=== PATIENT | male | born 1990 | race Caucasian/White ===

== ENCOUNTER 2018-07-27 19:09 | Inpatient (IN) ==
[2018-07-27] MEDS ORDERED: Isovue-370 500 ML BOTTLE IVP ONE (20:02)
[2018-07-27] MEDS ORDERED: 0.9 % Sodium Chloride 1,000 ML IVC ONE ×2 (20:02→21:29)
[2018-07-27] MEDS ORDERED: Ondansetron 4 MG/2 ML VIAL IVP ONE (20:02)
[2018-07-27] MEDS ORDERED: *HR* FentaNYL (PF) 100 MCG/2 ML VIAL IVP ONE (20:02)
[2018-07-27 20:42] LABS: Bilirubin,Urine Negative (Negative); Blood,Urine Negative (Negative); Clarity,Urine Cloudy (Clear); Color,Urine Yellow (Yellow); Glucose,Urine (UA) Normal (Normal); Ketones,Urine Trace mg/dL (Negative); Leukocyte Esterase,Urine Negative (Negative); Nitrite,Urine Negative (Negative); Protein,Urine 100 mg/dL (Neg-Trace); Specific Gravity,Urine > 1.030 (1.010-1.025); Urobilinogen,Urine Normal (Normal)
[2018-07-27 20:45] LABS: Bacteria,Urine None Seen per hpf (None-Few); Squamous Epithelial Cell,Urine Many per lpf (None-Few)
[2018-07-27 20:48] LABS: Hyaline Casts,Urine Few per lpf (None-Few); RBC,Urine 0-3 per hpf (0-3)
--- NOTE | 2018-07-27 20:49 | Emergency Department Note ---
Disposition Clinical Impression: Alcohol abuse Acute pancreatitis Qualifiers: Pancreatitis type: alcohol induced Acute pancreatitis complication: no infection or necrosis Qualified Code(s): K85.20 - Alcohol induced acute pancreatitis without necrosis or infection Disposition: Admitted As Inpatient Condition: Fair Referrals: NONE,PCP [Primary Care Provider] - Forms: ED Satisfaction Letter, Work/School Release Time of Disposition: 23:41 Abdominal Pain HPI - General Chief Complaint: ED Abdominal Pain Stated Complaint: ABD Pain due to ETOH Abuse / Depression Time Seen by Provider: 07/27/18 19:33 Source: patient Mode of arrival: ambulatory Limitations: no limitations Nursing Notes Reviewed: Yes Vital Signs Reviewed: Yes - History of Present Illness HPI Narrative: 27-year-old male history of alcoholism presents to the emergency department for generalized abdominal pain. He said that the pain has been ongoing for a couple days and slowly getting worse. He does have history of chronic alcoholism where he drinks approximately a pint 2 L of whiskey daily. He said he is trying to cut back and does want to stop. He does feel that he is been very depressed feels he is hurting himself by drinking but cannot stop. He has not any suicidal or homicidal ideations. He is describing the pain as a dull throbbing ache across the whole abdomen nonradiating nothing seems to make it better or worse. He has no diarrhea or constipation. There has been no fevers. He has never had any abdominal surgeries. Otherwise patient has no other complaints at this time. Pain Scale: 9 - Related Data Previous Rx's Medication Instructions Recorded Promethazine/Dextromethorphan 5 ml PO Q4-6H PRN #120 syrup 03/05/18 [Promethazine-Dm Syrup] Allergies Allergy/AdvReac Type Severity Reaction Status Date / Time No Known Allergies Allergy Verified 03/05/18 15:37 All systems ED: reviewed and negative except as stated. Review of Systems: As Per HPI Abdominal Pain PMH - Past Medical History Medical history: Reports: other Male Surgical History: Reports: no surgical history - Social History Smoking status: Never smoker Alcohol use: Reports: heavy Drug use: Reports: none Physical Exam - General Limitations: no limitations General appearance: alert, in no apparent distress - Head Head exam: atraumatic, normocephalic, normal inspection - Eye Eye exam: Present: normal appearance, PERRL, EOMI - ENT ENT exam: normal exam, normal oropharynx, mucous membranes moist - Neck Neck exam: Present: normal inspection, full ROM, trachea midline - Chest Chest inspection: Present: normal inspection, symmetric chest wall rise - Respiratory Respiratory exam: Present: normal lung sounds bilaterally - Cardiovascular Cardiovascular exam: Present: regular rate, normal rhythm, normal heart sounds - Abdominal Exam Abdominal exam: Present: soft, tenderness (Mild diffuse tenderness on the abdomen while palpating noticeable masses.), normal bowel sounds. Absent: distention, guarding, rebound, rigidity, heel tap sign, Barron's sign, Rovsing's sign, tenderness at McBurney's Point, ascites, mass, pulsatile mass, hernia - Extremities Exam Extremities exam: Present: normal inspection, full ROM. Absent: tenderness, pedal edema - Back Exam Back exam: Present: normal inspection, full ROM. 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 No workup further for that as needed. We EKG, basic labs including CBC, BMP, lipase as well as a CT of the abdomen and pelvis with contrast to rule out signs of pancreatitis or other etiologies. We will consider possible psychiatric eval and also give resources for alcohol detox. Disposition pending results Vital Signs Temperature 98.2 F 07/27/18 19:16 Pulse Rate 132 07/27/18 19:16 Respiratory Rate 20 07/27/18 19:16 Blood Pressure 166/111 07/27/18 19:16 O2 Sat by Pulse Oximetry 99 07/27/18 19:16 Temperature 98.2 F 07/27/18 19:16 Pulse Rate 101 07/27/18 22:03 Respiratory Rate 16 07/27/18 22:03 Blood Pressure 153/89 07/27/18 22:03 O2 Sat by Pulse Oximetry 95 07/27/18 22:03 Oxygen Delivery Oxygen Delivery Room Air Abdominal Pain - MDM Narrative Medical decision making narrative: Patient with history of alcoholism said he did drink today. He is trying to quit and does want to go through detox. Says that he feels as though the alcohol is killing him and he just keeps on wanting to do a although he does not have any specific suicidal or homicidal ideations but does want to see psychiatry to help him deal through this difficult time. Patient's labs did s how an elevated lipase as well as CT showing acute pancreatitis. Did give patient 2 L IV fluids as well as multiple pain medications fentanyl did not work, morphine did not work, so we gave Dilaudid as his last dose. Patient is stable. There is no necrosis or fluid around the pancreas. Patient will be kept nothing by mouth. Patient will be admitted to the hospitalist service for pain control as well as further evaluation. Also need to watch for alcohol withdrawal he is not had any withdrawal symptoms here. Was positive for alcohol while here in the emergency department. I spoke with Dr. Nunez who agreed to admit the patient to their service. Patient is admitted in stable condition Abdomen/Pelvis CT 07/27/18 19:59 IMPRESSION: 1. Findings favoring acute pancreatitis causing secondary duodenitis; correlate with lipase. D/ / Lincoln Johnson MD / Lincoln Johnson MD Interpreting Provider: Lincoln Johnson MD - Medical Records Medical records reviewed: Yes I reviewed the patient's medical records. - Lab Data Lab results reviewed: Yes I reviewed the patient's lab results. Result diagrams: 07/27/18 20:46 07/27/18 20:46 Lab Results 07/27/18 07/27/18 07/27/18 Range/Units 20:30 20:30 20:46 WBC 6.5 (4.3-11.1) K/mcL RBC 5.59 H (4.19-5.50) M/mcL Hgb 17.1 H (12.9-16.9) g/dL Hct 48.9 (37.5-50.1) % MCV 87.5 (83.0-100.0) fL MCH 30.6 (28.0-33.3) pg MCHC 35.0 (31.6-35.5) g/dL RDW 14.1 (11.5-14.5) % Plt Count 443 H (140-400) K/mcL MPV 9.2 L (9.4-12.4) fL Immature Gran % 0.3 (0-4) % Seg Neutrophils % 65.2 % Lymphocytes % 25.2 % Monocytes % 8.2 % Eosinophils % 0.2 % Basophils % 0.9 % Neutrophils # 4.2 (1.6-8.9) K/mcL Lymphocytes # 1.6 (0.6-4.6) K/mcL Monocytes # 0.5 (0.0-1.3) K/mcL Eosinophils # 0.0 (0.0-0.6) K/mcL Basophils # 0.1 (0.0-0.2) K/mcL PT (9.4-12.1) Seconds INR APTT (26.0-36.0) Seconds Sodium (136-145) mEq/L Potassium (3.5-5.1) mEq/L Chloride (98-107) mEq/L Carbon Dioxide (23-29) mEq/L BUN (6-20) mg/dL Creatinine (0.70-1.30) mg/dL Est GFR ( Amer) (> 60) Est GFR (Non-Af Amer) (> 60) BUN/Creatinine Ratio (6-26) Glucose (70-105) mg/dL Calculated Osmolality (280-300) Lactic Acid (0.5-2.2) mmol/L Calcium (8.6-10.3) mg/dL Total Bilirubin (0.3-1.0) mg/dL AST (13-39) Units/L ALT (7-52) Units/L Alkaline Phosphatase (34-104) Units/L Troponin I (< 0.04) ng/mL Serum Total Protein (6.4-8.9) g/dL Albumin (3.5-5.7) g/dL Globulin (2.4-3.5) g/dL Albumin/Globulin Ratio (1.1-2.2) Lipase (11-82) Units/L Urine Color Yellow (Yellow) Urine Clarity Cloudy A (Clear) Urine pH 6.0 (5.0-8.0) pH Units Ur Specific [place] > 1.030 H (1.010-1.025) Urine Protein 100 H (Neg-Trace) mg/dL Urine Glucose (UA) Normal (Normal) mg/dL Urine Ketones Trace H (Negative) mg/dL Urine Blood Negative (Negative) Urine Nitrite Negative (Negative) Urine Bilirubin Negative (Negative) Urine Urobilinogen Normal (Normal) mg/dL Ur Leukocyte Esterase Negative (Negative) Urine Microscopic RBC 0-3 (0-3) per hpf Urine Microscopic WBC 5-15 H (0-3) per hpf Ur Squamous Epith Cells Many H (None-Few) per lpf Urine Bacteria None Seen (None-Few) per hpf Hyaline Casts Few (None-Few) per lpf Ur Culture Indicated? NO (NO) Salicylates (15.0-30.0) mg/dL Urine Opiates Screen Negative (Oozrul=733) ng/mL Acetaminophen (10-20) mcg/mL Ur Barbiturates Screen Negative (Ebxvci=031) ng/mL Ur Phencyclidine Scrn Negative (Cutoff=25) ng/mL Ur Amphetamines Screen Negative (Pkcgos=3418) ng/mL U Benzodiazepines Scrn Positive H (Kejfwe=703) ng/mL Urine Cocaine Screen Negative (Cutoff= 300) ng/mL U Marijuana (THC) Screen Negative (Cutoff = 50) ng/mL Ur Drug Screen Interp See Below Ethyl Alcohol (Less than 10) mg/dL 07/27/18 07/27/18 07/27/18 Range/Units 20:46 20:46 20:46 WBC (4.3-11.1) K/mcL RBC (4.19-5.50) M/mcL Hgb (12.9-16.9) g/dL Hct (37.5-50.1) % MCV (83.0-100.0) fL MCH (28.0-33.3) pg MCHC (31.6-35.5) g/dL RDW (11.5-14.5) % Plt Count (140-400) K/mcL MPV (9.4-12.4) fL Immature Gran % (0-4) % Seg Neutrophils % % Lymphocytes % % Monocytes % % Eosinophils % % Basophils % % Neutrophils # (1.6-8.9) K/mcL Lymphocytes # (0.6-4.6) K/mcL Monocytes # (0.0-1.3) K/mcL Eosinophils # (0.0-0.6) K/mcL Basophils # (0.0-0.2) K/mcL PT 11.6 (9.4-12.1) Seconds INR 1.0 APTT 29.6 (26.0-36.0) Seconds Sodium 136 (136-145) mEq/L Potassium 3.8 (3.5-5.1) mEq/L Chloride 96 L (98-107) mEq/L Carbon Dioxide 24 (23-29) mEq/L BUN 18 (6-20) mg/dL Creatinine 0.84 (0.70-1.30) mg/dL Est GFR ( Amer) > 60 (> 60) Est GFR (Non-Af Amer) > 60 (> 60) BUN/Creatinine Ratio 21 (6-26) Glucose 113 H (70-105) mg/dL Calculated Osmolality 285 (280-300) Lactic Acid 2.4 H (0.5-2.2) mmol/L Calcium 9.4 (8.6-10.3) mg/dL Total Bilirubin 0.6 (0.3-1.0) mg/dL AST 68 H (13-39) Units/L ALT 49 (7-52) Units/L Alkaline Phosphatase 82 (34-104) Units/L Troponin I < 0.03 (< 0.04) ng/mL Serum Total Protein 7.9 (6.4-8.9) g/dL Albumin 4.6 (3.5-5.7) g/dL Globulin 3.3 (2.4-3.5) g/dL Albumin/Globulin Ratio 1.4 (1.1-2.2) Lipase 291 H (11-82) Units/L Urine Color (Yellow) Urine Clarity (Clear) Urine pH (5.0-8.0) pH Units Ur Specific [place] (1.010-1.025) Urine Protein (Neg-Trace) mg/dL Urine Glucose (UA) (Normal) mg/dL Urine Ketones (Negative) mg/dL Urine Blood (Negative) Urine Nitrite (Negative) Urine Bilirubin (Negative) Urine Urobilinogen (Normal) mg/dL Ur Leukocyte Esterase (Negative) Urine Microscopic RBC (0-3) per hpf Urine Microscopic WBC (0-3) per hpf Ur Squamous Epith Cells (None-Few) per lpf Urine Bacteria (None-Few) per hpf Hyaline Casts (None-Few) per lpf Ur Culture Indicated? (NO) Salicylates (15.0-30.0) mg/dL Urine Opiates Screen (Ommsnr=586) ng/mL Acetaminophen (10-20) mcg/mL Ur Barbiturates Screen (Josoie=446) ng/mL Ur Phencyclidine Scrn (Cutoff=25) ng/mL Ur Amphetamines Screen (Jqhful=5800) ng/mL U Benzodiazepines Scrn (Rzpduz=773) ng/mL Urine Cocaine Screen (Cutoff= 300) ng/mL U Marijuana (THC) Screen (Cutoff = 50) ng/mL Ur Drug Screen Interp Ethyl Alcohol 271 H (Less than 10) mg/dL 07/27/18 Range/Units 21:27 WBC (4.3-11.1) K/mcL RBC (4.19-5.50) M/mcL Hgb (12.9-16.9) g/dL Hct (37.5-50.1) % MCV (83.0-100.0) fL MCH (28.0-33.3) pg MCHC (31.6-35.5) g/dL RDW (11.5-14.5) % Plt Count (140-400) K/mcL MPV (9.4-12.4) fL Immature Gran % (0-4) % Seg Neutrophils % % Lymphocytes % % Monocytes % % Eosinophils % % Basophils % % Neutrophils # (1.6-8.9) K/mcL Lymphocytes # (0.6-4.6) K/mcL Monocytes # (0.0-1.3) K/mcL Eosinophils # (0.0-0.6) K/mcL Basophils # (0.0-0.2) K/mcL PT (9.4-12.1) Seconds INR APTT (26.0-36.0) Seconds Sodium (136-145) mEq/L Potassium (3.5-5.1) mEq/L Chloride (98-107) mEq/L Carbon Dioxide (23-29) mEq/L BUN (6-20) mg/dL Creatinine (0.70-1.30) mg/dL Est GFR ( Amer) (> 60) Est GFR (Non-Af Amer) (> 60) BUN/Creatinine Ratio (6-26) Glucose (70-105) mg/dL Calculated Osmolality (280-300) Lactic Acid (0.5-2.2) mmol/L Calcium (8.6-10.3) mg/dL Total Bilirubin (0.3-1.0) mg/dL AST (13-39) Units/L ALT (7-52) Units/L Alkaline Phosphatase (34-104) Units/L Troponin I (< 0.04) ng/mL Serum Total Protein (6.4-8.9) g/dL Albumin (3.5-5.7) g/dL Globulin (2.4-3.5) g/dL Albumin/Globulin Ratio (1.1-2.2) Lipase (11-82) Units/L Urine Color (Yellow) Urine Clarity (Clear) Urine pH (5.0-8.0) pH Units Ur Specific [place] (1.010-1.025) Urine Protein (Neg-Trace) mg/dL Urine Glucose (UA) (Normal) mg/dL Urine Ketones (Negative) mg/dL Urine Blood (Negative) Urine Nitrite (Negative) Urine Bilirubin (Negative) Urine Urobilinogen (Normal) mg/dL Ur Leukocyte Esterase (Negative) Urine Microscopic RBC (0-3) per hpf Urine Microscopic WBC (0-3) per hpf Ur Squamous Epith Cells (None-Few) per lpf Urine Bacteria (None-Few) per hpf Hyaline Casts (None-Few) per lpf Ur Culture Indicated? (NO) Salicylates < 2.5 L (15.0-30.0) mg/dL Urine Opiates Screen (Hdziuw=699) ng/mL Acetaminophen < 10 L (10-20) mcg/mL Ur Barbiturates Screen (Blafbz=518) ng/mL Ur Phencyclidine Scrn (Cutoff=25) ng/mL Ur Amphetamines Screen (Cgtymv=0015) ng/mL U Benzodiazepines Scrn (Xihxtz=986) ng/mL Urine Cocaine Screen (Cutoff= 300) ng/mL U Marijuana (THC) Screen (Cutoff = 50) ng/mL Ur Drug Screen Interp Ethyl Alcohol (Less than 10) mg/dL - Radiology Data Radiology results reviewed: Yes I reviewed the patient's radiology results. - EKG Data EKG attestation: Yes I reviewed and interpreted this EKG. EKG results narrative: EKG done at 2034 reviewed by myself and the attending shows sinus tachycardia at a rate of 101. No acute ST changes no acute T-wave changes no signs of hypertrophy, heart strain there is a left bundle branch block. There is WPW but no Brugada/hokum. No old EKG to compare with
--- NOTE | 2018-07-27 20:49 | Emergency Department Note ---
Disposition Clinical Impression: Alcohol abuse Acute pancreatitis Qualifiers: Pancreatitis type: alcohol induced Acute pancreatitis complication: no infection or necrosis Qualified Code(s): K85.20 - Alcohol induced acute pancreatitis without necrosis or infection Disposition: Admitted As Inpatient Condition: Fair Referrals: NONE,PCP [Primary Care Provider] - Forms: ED Satisfaction Letter, Work/School Release General Adult HPI - General Chief complaint: ED Abdominal Pain Stated complaint: ABD Pain due to ETOH Abuse / Depression Time Seen by Provider: 07/27/18 19:33 Source: patient Limitations: no limitations Nursing Notes Reviewed: Yes Vital Signs Reviewed: Yes - History of Present Illness Pain Scale: 9 - Related Data Previous Rx's Medication Instructions Recorded Promethazine/Dextromethorphan 5 ml PO Q4-6H PRN #120 syrup 03/05/18 [Promethazine-Dm Syrup] Allergies Allergy/AdvReac Type Severity Reaction Status Date / Time No Known Allergies Allergy Verified 03/05/18 15:37 Past Medical History - Past Medical History Medical history: Reports: other - Social History Smoking Status: Never smoker Smokeless Tobacco Status: Yes Alcohol use: Reports: heavy Drug use: Reports: none Physical Exam - General Limitations: no limitations General appearance: alert, in no apparent distress Course Vital Signs Temperature 98.2 F 07/27/18 19:16 Pulse Rate 132 07/27/18 19:16 Respiratory Rate 20 07/27/18 19:16 Blood Pressure 166/111 07/27/18 19:16 O2 Sat by Pulse Oximetry 99 07/27/18 19:16 Temperature 98.2 F 07/27/18 19:16 Pulse Rate 101 07/27/18 22:03 Respiratory Rate 16 07/27/18 22:03 Blood Pressure 153/89 07/27/18 22:03 O2 Sat by Pulse Oximetry 95 07/27/18 22:03 Oxygen Delivery Oxygen Delivery Room Air Medical Decision Making - Medical Records Medical records reviewed: Yes I reviewed the patient's medical records. - Lab Data Lab results reviewed: Yes I reviewed the patient's lab results. Result diagrams: 07/27/18 20:46 07/27/18 20:46 Lab Results 07/27/18 07/27/18 07/27/18 Range/Units 20:30 20:30 20:46 WBC 6.5 (4.3-11.1) K/mcL RBC 5.59 H (4.19-5.50) M/mcL Hgb 17.1 H (12.9-16.9) g/dL Hct 48.9 (37.5-50.1) % MCV 87.5 (83.0-100.0) fL MCH 30.6 (28.0-33.3) pg MCHC 35.0 (31.6-35.5) g/dL RDW 14.1 (11.5-14.5) % Plt Count 443 H (140-400) K/mcL MPV 9.2 L (9.4-12.4) fL Immature Gran % 0.3 (0-4) % Seg Neutrophils % 65.2 % Lymphocytes % 25.2 % Monocytes % 8.2 % Eosinophils % 0.2 % Basophils % 0.9 % Neutrophils # 4.2 (1.6-8.9) K/mcL Lymphocytes # 1.6 (0.6-4.6) K/mcL Monocytes # 0.5 (0.0-1.3) K/mcL Eosinophils # 0.0 (0.0-0.6) K/mcL Basophils # 0.1 (0.0-0.2) K/mcL PT (9.4-12.1) Seconds INR APTT (26.0-36.0) Seconds Sodium (136-145) mEq/L Potassium (3.5-5.1) mEq/L Chloride (98-107) mEq/L Carbon Dioxide (23-29) mEq/L BUN (6-20) mg/dL Creatinine (0.70-1.30) mg/dL Est GFR ( Amer) (> 60) Est GFR (Non-Af Amer) (> 60) BUN/Creatinine Ratio (6-26) Glucose (70-105) mg/dL Calculated Osmolality (280-300) Lactic Acid (0.5-2.2) mmol/L Calcium (8.6-10.3) mg/dL Total Bilirubin (0.3-1.0) mg/dL AST (13-39) Units/L ALT (7-52) Units/L Alkaline Phosphatase (34-104) Units/L Troponin I (< 0.04) ng/mL Serum Total Protein (6.4-8.9) g/dL Albumin (3.5-5.7) g/dL Globulin (2.4-3.5) g/dL Albumin/Globulin Ratio (1.1-2.2) Lipase (11-82) Units/L Urine Color Yellow (Yellow) Urine Clarity Cloudy A (Clear) Urine pH 6.0 (5.0-8.0) pH Units Ur Specific [place] > 1.030 H (1.010-1.025) Urine Protein 100 H (Neg-Trace) mg/dL Urine Glucose (UA) Normal (Normal) mg/dL Urine Ketones Trace H (Negative) mg/dL Urine Blood Negative (Negative) Urine Nitrite Negative (Negative) Urine Bilirubin Negative (Negative) Urine Urobilinogen Normal (Normal) mg/dL Ur Leukocyte Esterase Negative (Negative) Urine Microscopic RBC 0-3 (0-3) per hpf Urine Microscopic WBC 5-15 H (0-3) per hpf Ur Squamous Epith Cells Many H (None-Few) per lpf Urine Bacteria None Seen (None-Few) per hpf Hyaline Casts Few (None-Few) per lpf Ur Culture Indicated? NO (NO) Salicylates (15.0-30.0) mg/dL Urine Opiates Screen Negative (Smdjai=863) ng/mL Acetaminophen (10-20) mcg/mL Ur Barbiturates Screen Negative (Estfbm=606) ng/mL Ur Phencyclidine Scrn Negative (Cutoff=25) ng/mL Ur Amphetamines Screen Negative (Ngpnzj=0772) ng/mL U Benzodiazepines Scrn Positive H (Nukzzw=672) ng/mL Urine Cocaine Screen Negative (Cutoff= 300) ng/mL U Marijuana (THC) Screen Negative (Cutoff = 50) ng/mL Ur Drug Screen Interp See Below Ethyl Alcohol (Less than 10) mg/dL 07/27/18 07/27/18 07/27/18 Range/Units 20:46 20:46 20:46 WBC (4.3-11.1) K/mcL RBC (4.19-5.50) M/mcL Hgb (12.9-16.9) g/dL Hct (37.5-50.1) % MCV (83.0-100.0) fL MCH (28.0-33.3) pg MCHC (31.6-35.5) g/dL RDW (11.5-14.5) % Plt Count (140-400) K/mcL MPV (9.4-12.4) fL Immature Gran % (0-4) % Seg Neutrophils % % Lymphocytes % % Monocytes % % Eosinophils % % Basophils % % Neutrophils # (1.6-8.9) K/mcL Lymphocytes # (0.6-4.6) K/mcL Monocytes # (0.0-1.3) K/mcL Eosinophils # (0.0-0.6) K/mcL Basophils # (0.0-0.2) K/mcL PT 11.6 (9.4-12.1) Seconds INR 1.0 APTT 29.6 (26.0-36.0) Seconds Sodium 136 (136-145) mEq/L Potassium 3.8 (3.5-5.1) mEq/L Chloride 96 L (98-107) mEq/L Carbon Dioxide 24 (23-29) mEq/L BUN 18 (6-20) mg/dL Creatinine 0.84 (0.70-1.30) mg/dL Est GFR ( Amer) > 60 (> 60) Est GFR (Non-Af Amer) > 60 (> 60) BUN/Creatinine Ratio 21 (6-26) Glucose 113 H (70-105) mg/dL Calculated Osmolality 285 (280-300) Lactic Acid 2.4 H (0.5-2.2) mmol/L Calcium 9.4 (8.6-10.3) mg/dL Total Bilirubin 0.6 (0.3-1.0) mg/dL AST 68 H (13-39) Units/L ALT 49 (7-52) Units/L Alkaline Phosphatase 82 (34-104) Units/L Troponin I < 0.03 (< 0.04) ng/mL Serum Total Protein 7.9 (6.4-8.9) g/dL Albumin 4.6 (3.5-5.7) g/dL Globulin 3.3 (2.4-3.5) g/dL Albumin/Globulin Ratio 1.4 (1.1-2.2) Lipase 291 H (11-82) Units/L Urine Color (Yellow) Urine Clarity (Clear) Urine pH (5.0-8.0) pH Units Ur Specific [place] (1.010-1.025) Urine Protein (Neg-Trace) mg/dL Urine Glucose (UA) (Normal) mg/dL Urine Ketones (Negative) mg/dL Urine Blood (Negative) Urine Nitrite (Negative) Urine Bilirubin (Negative) Urine Urobilinogen (Normal) mg/dL Ur Leukocyte Esterase (Negative) Urine Microscopic RBC (0-3) per hpf Urine Microscopic WBC (0-3) per hpf Ur Squamous Epith Cells (None-Few) per lpf Urine Bacteria (None-Few) per hpf Hyaline Casts (None-Few) per lpf Ur Culture Indicated? (NO) Salicylates (15.0-30.0) mg/dL Urine Opiates Screen (Punooz=242) ng/mL Acetaminophen (10-20) mcg/mL Ur Barbiturates Screen (Htuloo=183) ng/mL Ur Phencyclidine Scrn (Cutoff=25) ng/mL Ur Amphetamines Screen (Vpjbnz=8787) ng/mL U Benzodiazepines Scrn (Odmghp=854) ng/mL Urine Cocaine Screen (Cutoff= 300) ng/mL U Marijuana (THC) Screen (Cutoff = 50) ng/mL Ur Drug Screen Interp Ethyl Alcohol 271 H (Less than 10) mg/dL 07/27/18 Range/Units 21:27 WBC (4.3-11.1) K/mcL RBC (4.19-5.50) M/mcL Hgb (12.9-16.9) g/dL Hct (37.5-50.1) % MCV (83.0-100.0) fL MCH (28.0-33.3) pg MCHC (31.6-35.5) g/dL RDW (11.5-14.5) % Plt Count (140-400) K/mcL MPV (9.4-12.4) fL Immature Gran % (0-4) % Seg Neutrophils % % Lymphocytes % % Monocytes % % Eosinophils % % Basophils % % Neutrophils # (1.6-8.9) K/mcL Lymphocytes # (0.6-4.6) K/mcL Monocytes # (0.0-1.3) K/mcL Eosinophils # (0.0-0.6) K/mcL Basophils # (0.0-0.2) K/mcL PT (9.4-12.1) Seconds INR APTT (26.0-36.0) Seconds Sodium (136-145) mEq/L Potassium (3.5-5.1) mEq/L Chloride (98-107) mEq/L Carbon Dioxide (23-29) mEq/L BUN (6-20) mg/dL Creatinine (0.70-1.30) mg/dL Est GFR ( Amer) (> 60) Est GFR (Non-Af Amer) (> 60) BUN/Creatinine Ratio (6-26) Glucose (70-105) mg/dL Calculated Osmolality (280-300) Lactic Acid (0.5-2.2) mmol/L Calcium (8.6-10.3) mg/dL Total Bilirubin (0.3-1.0) mg/dL AST (13-39) Units/L ALT (7-52) Units/L Alkaline Phosphatase (34-104) Units/L Troponin I (< 0.04) ng/mL Serum Total Protein (6.4-8.9) g/dL Albumin (3.5-5.7) g/dL Globulin (2.4-3.5) g/dL Albumin/Globulin Ratio (1.1-2.2) Lipase (11-82) Units/L Urine Color (Yellow) Urine Clarity (Clear) Urine pH (5.0-8.0) pH Units Ur Specific [place] (1.010-1.025) Urine Protein (Neg-Trace) mg/dL Urine Glucose (UA) (Normal) mg/dL Urine Ketones (Negative) mg/dL Urine Blood (Negative) Urine Nitrite (Negative) Urine Bilirubin (Negative) Urine Urobilinogen (Normal) mg/dL Ur Leukocyte Esterase (Negative) Urine Microscopic RBC (0-3) per hpf Urine Microscopic WBC (0-3) per hpf Ur Squamous Epith Cells (None-Few) per lpf Urine Bacteria (None-Few) per hpf Hyaline Casts (None-Few) per lpf Ur Culture Indicated? (NO) Salicylates < 2.5 L (15.0-30.0) mg/dL Urine Opiates Screen (Nyrkzg=505) ng/mL Acetaminophen < 10 L (10-20) mcg/mL Ur Barbiturates Screen (Grzakn=358) ng/mL Ur Phencyclidine Scrn (Cutoff=25) ng/mL Ur Amphetamines Screen (Yqmalh=1398) ng/mL U Benzodiazepines Scrn ([place]uf=207) ng/mL Urine Cocaine Screen (Cutoff= 300) ng/mL U Marijuana (THC) Screen (Cutoff = 50) ng/mL Ur Drug Screen Interp Ethyl Alcohol (Less than 10) mg/dL - Radiology Data Radiology results reviewed: Yes I reviewed the patient's radiology results. Abdomen/Pelvis CT 07/27/18 19:59 IMPRESSION: 1. Findings favoring acute pancreatitis causing secondary duodenitis; correlate with lipase. D/ / Lincoln Johnson MD / Lincoln Johnson MD Interpreting Provider: Lincoln Johnson MD - EKG Data EKG #1 EKG attestation: Yes I reviewed and interpreted this EKG. EKG results narrative: EKG shows sinus tachycardia with ventricular rate of 101. 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 Attestation Statement - Attestation Attestation: I, Huan Rayn MD, personally evaluated this patient and discussed their management with the resident physician. I reviewed the resident's note and agree with the documented findings, medical decision making, and plan of care. 27-year-old male presents to the emergency department with a complaint of epigastric abdominal pain for the past 2 days. There has been nausea and a few episodes of vomiting. Patient is alcoholic and drinks whiskey daily. He last drank whiskey about 2 PM today. Patient was just admitted about 2 or 3 weeks ago for abdominal pain which he states was due to inflammation in his lower bowel from the alcohol. He did not have pancreatitis at that time. No melena, hematemesis, or hematochezia. No fever. No urinary symptoms. Urine has not been dark or bloody. Patient states that he has been going through a divorce and under a lot of stress. He denies any direct suicidal ideation but states that he feels like he is intentionally hurting himself with the drinking. He reports he feels like his is having a nervous breakdown. He denies homicidal ideation. No hallucinations. On examination patient is a well-developed obese male in no acute distress. He is alert and oriented 3. There is no cyanosis or diaphoresis. Breath sounds are clear and equal bilaterally. Heart regular with a mild tachycardia. Abdomen soft with present bowel sounds. Moderate epigastric tenderness. No guarding or rebound tenderness. EKG shows a sinus tachycardia with ventricular rate of 101. Left bundle branch block. Nonspecific ST and T-wave changes. 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 Labs reviewed. Lipase 291. EtOH 271. CT of the abdomen and pelvis shows acute pancreatitis causing secondary duodenitis. The hospitalist, Dr. Dominguez, was consulted and accepted admission of the patient.
[2018-07-27 20:59] LABS: Basophils # 0.1 K/mcL (0.0-0.2); Basophils % 0.9 %; Eosinophils % 0.2 %; Hematocrit 48.9 % (37.5-50.1); Hemoglobin 17.1 g/dL (12.9-16.9); Immature Granulocytes % 0.3 % (0-4); Lymphocytes # 1.6 K/mcL (0.6-4.6); Lymphocytes % 25.2 %; Mean Corpuscular Hemoglobin 30.6 pg (28.0-33.3); Mean Corpuscular Volume 87.5 fL (83.0-100.0); Mean Platelet Volume 9.2 fL (9.4-12.4); Monocytes # 0.5 K/mcL (0.0-1.3); Monocytes % 8.2 %; Neutrophils # 4.2 K/mcL (1.6-8.9); Platelet Count 443 K/mcL (140-400); Red Blood Count 5.59 M/mcL (4.19-5.50); Red Cell Distribution Width 14.1 % (11.5-14.5); Segmented Neutrophils % 65.2 %
[2018-07-27 21:00] LABS: Amphetamine Screen,Urine Negative ng/mL (Cutoff=1000); Barbiturate Screen,Urine Negative ng/mL (Cutoff=200); Benzodiazepines Screen,Urine Positive ng/mL (Cutoff=200); Cannabinoid Screen,Urine Negative ng/mL (Cutoff = 50); Cocaine Screen,Urine Negative ng/mL (Cutoff= 300); Opiate Screen,Urine Negative ng/mL (Cutoff=300); Phencyclidine Screen,Urine Negative ng/mL (Cutoff=25)
[2018-07-27 21:07] LABS: Prothrombin Time 11.6 Seconds (9.4-12.1)
[2018-07-27 21:10] LABS: Activated Partial Thrombo Time 29.6 Seconds (26.0-36.0)
[2018-07-27 21:21] LABS: Alanine Aminotransferase 49 Units/L (7-52); Albumin 4.6 g/dL (3.5-5.7); Albumin/Globulin Ratio 1.4 (1.1-2.2); Alkaline Phosphatase 82 Units/L (34-104); Aspartate Amino Transferase 68 Units/L (13-39); BUN/Creatinine Ratio 21 (6-26); Bilirubin,Total 0.6 mg/dL (0.3-1.0); Blood Urea Nitrogen 18 mg/dL (6-20); Calcium 9.4 mg/dL (8.6-10.3); Carbon Dioxide 24 mEq/L (23-29); Chloride 96 mEq/L (98-107); Ethanol 271 mg/dL (Less than 10); Globulin 3.3 g/dL (2.4-3.5); Glucose 113 mg/dL (70-105); Lipase 291 Units/L (11-82); Osmolality,Calculated 285 (280-300); Potassium 3.8 mEq/L (3.5-5.1); Sodium 136 mEq/L (136-145); Total Protein 7.9 g/dL (6.4-8.9); Troponin I < 0.03 ng/mL (< 0.04); eGFR For Non-African Americans > 60 (> 60)
[2018-07-27] MEDS ORDERED: *HR* Morphine 2 MG/ML SYRINGE IVP ONE (21:29)
[2018-07-27] MEDS ORDERED: GI Cocktail 40 ML EACH PO ONE (21:29)
[2018-07-27 22:04] LABS: Acetaminophen < 10 mcg/mL (10-20); Salicylate < 2.5 mg/dL (15.0-30.0)
[2018-07-27] MEDS ORDERED: *HR* HYDROmorphone (PF) 1 MG/ML SYRINGE IVP ONE (23:28)
[2018-07-27] MEDS ORDERED: *HR* LORazepam 2 MG/ML VIAL IVP PRN (23:55)
[2018-07-27] MEDS ORDERED: Naloxone 0.4 MG/ML INJ IVP PRN (23:55)
--- NOTE | 2018-07-28 00:39 | Internal Med History&Physical ---
Date of Encounter: 07/27/18 Time of Encounter: 20:00 Internal Medicine - H&P: HPI Chief complaint: abdominal pain Admitted From: Home Plans for Post Hospital Care: Home History of present illness: Jesse Crouch is a 27 year old alcoholic male with multiple episodes of pancreatitis in the past who presents to the emergency room complaining of 2 days of day she is predominantly epigastric abdominal pain accompanied by nausea, exacerbated by meals. It has been progressive in nature and describes it as a stabbing pain. He last drank liquor this afternoon at 1 PM in spite of his pain. Family member at bedside state that he has gone through emotional turmoil with deaths of family members and undergoing divorce proceedings which has exacerbated his alcohol use. Lab work was remarkable for a lipase of 291 an alcohol level of 271. Abdomen CT showed inflammation surrounding the pancreatic head and third portion of the duodenum favoring pancreatitis. He was given 1 mg of hydromorphone, 8 mg of morphine and 100 g of fentanyl to achieve pain relief. He is admitted for further care. Family history reviewed and found non-contributory. Vitals: Reviewed General: Obese white male lying in bed in notable discomfort. Skin: Flushed, warm and diaphoretic. HEENT: Moist mucous membranes. No conjunctivae pallor. Neck: No lymphadenopathy. No JVD. No carotid bruits. No palpable thyroid. Chest: Normal thoracic expansion. Normal breath sounds. Clear to auscultation. Heart: Normal S1 & S2; rhythmic. No rubs or murmurs. Abdomen: Non-distended, soft and tender to palpation in the left flank and epigastrium. Extremities: No clubbing, cyanosis or edema. No calf tenderness. Normal distal pulses. Neurological: Awake, alert and oriented to person, place and time. No focal deficits. Psych: Affect appropriate. Assessment/Plan Acute pancreatitis: Secondary to alcohol use. -Will keep NPO -Aggressive fluid resuscitation. -Analgesics and antiemetics as needed. Alcoholism: -Will place on CIWA protocol, close neurologic exacerbations and benzos prn. -Banana bag ordered. -business services assistant consult for counseling and detox services requested. Obesity: Counseled and educated on therapeutic lifestyle changes for weight loss as it will be of benefit in controlling comorbidities. Pants Presser evaluation advised. DVT prophylaxis: SubQ heparin ordered. 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 - Constitutional Vitals: Temp Pulse Resp BP Pulse Ox 98.2 F 101 18 153/96 95 07/27/18 19:16 07/27/18 22:03 07/28/18 00:09 07/28/18 00:09 07/27/18 22:03 Exam: . Internal Med - H&P Results - Labs CBC & Chem 7: 07/27/18 20:46 07/27/18 20:46 Labs: Short CBC 07/27/18 Range/Units 20:46 WBC 6.5 (4.3-11.1) K/mcL Hgb 17.1 H (12.9-16.9) g/dL Hct 48.9 (37.5-50.1) % Plt Count 443 H (140-400) K/mcL Neutrophils # 4.2 (1.6-8.9) K/mcL BMP 07/27/18 20:46 Sodium 136 Potassium 3.8 Chloride 96 L Carbon Dioxide 24 BUN 18 Creatinine 0.84 Glucose 113 H Calcium 9.4 Cardiac Enzymes 07/27/18 Range/Units 20:46 Troponin I < 0.03 (< 0.04) ng/mL Liver Function 07/27/18 Range/Units 20:46 Total Bilirubin 0.6 (0.3-1.0) mg/dL AST 68 H (13-39) Units/L ALT 49 (7-52) Units/L Alkaline Phosphatase 82 (34-104) Units/L Albumin 4.6 (3.5-5.7) g/dL Urine 07/27/18 Range/Units 20:30 Urine Color Yellow (Yellow) Urine Clarity Cloudy A (Clear) Urine pH 6.0 (5.0-8.0) pH Units Ur Specific [place] > 1.030 H (1.010-1.025) Urine Protein 100 H (Neg-Trace) mg/dL Urine Glucose (UA) Normal (Normal) mg/dL - Impressions ITS Impressions Abdomen/Pelvis CT 07/27/18 19:59 IMPRESSION: 1. Findings favoring acute pancreatitis causing secondary duodenitis; correlate with lipase. D/ / Lincoln Johnson MD / Lincoln Johnson MD Interpreting Provider: Lincoln Johnson MD - Time Spent With Patient Total time spent is greater than 50% in coordination of care (as documented) at patient's floor/unit and/or counseling patient: Greater than 35 minutes
[2018-07-28] MEDS: Ondansetron 4 MG/2 ML VIAL IVP PRN ×2 (00:58→10:59)
[2018-07-28] MEDS: Ringers Solution, Lactated 1,000 ML IVC SCH ×2 (01:05→06:20)
[2018-07-28] MEDS: Thiamine (B-1) 100 MG, Folic Acid 1 MG, MVI, adult with vitamin K 10 ML in 0.9 % Sodi... IVPB SCH ×2 (01:58→16:59)
[2018-07-28] MEDS: Ketorolac 30 MG/ML VIAL IVP PRN ×2 (02:08→07:59)
[2018-07-28] MEDS: *HR* Promethazine 25 MG/ML VIAL IVP PRN ×5 (03:35→23:19)
[2018-07-28] MEDS ORDERED: Haloperidol Lactate 5 MG/ML VIAL IVP ONE (05:12)
[2018-07-28] MEDS: *HR* HYDROmorphone (PF) 1 MG/ML SYRINGE IVP PRN ×2 (05:28→09:18)
[2018-07-28] MEDS ORDERED: *HR* Heparin 5,000 UNIT/ML VIAL SQ SCH (06:00)
[2018-07-28] MEDS: *HR* LORazepam 2 MG/ML VIAL IVP PRN ×3 (07:15→15:37)
[2018-07-28 08:35] LABS: Basophils # 0.1 K/mcL (0.0-0.2); Basophils % 1.1 %; Eosinophils % 0.2 %; Hematocrit 40.7 % (37.5-50.1); Hemoglobin 13.8 g/dL (12.9-16.9); Immature Granulocytes % 0.4 % (0-4); Lymphocytes # 0.6 K/mcL (0.6-4.6); Lymphocytes % 13.5 %; Mean Corpuscular HGB Conc 33.9 g/dL (31.6-35.5); Mean Corpuscular Hemoglobin 30.3 pg (28.0-33.3); Mean Corpuscular Volume 89.5 fL (83.0-100.0); Mean Platelet Volume 9.3 fL (9.4-12.4); Monocytes # 0.3 K/mcL (0.0-1.3); Monocytes % 6.1 %; Neutrophils # 3.6 K/mcL (1.6-8.9); Platelet Count 297 K/mcL (140-400); Red Blood Count 4.55 M/mcL (4.19-5.50); Red Cell Distribution Width 14.3 % (11.5-14.5); Segmented Neutrophils % 78.7 %
[2018-07-28 08:56] LABS: Alanine Aminotransferase 47 Units/L (7-52); Albumin 3.6 g/dL (3.5-5.7); Albumin/Globulin Ratio 1.5 (1.1-2.2); Alkaline Phosphatase 60 Units/L (34-104); Aspartate Amino Transferase 77 Units/L (13-39); BUN/Creatinine Ratio 25 (6-26); Bilirubin,Direct 0.1 mg/dL (0.0-0.2); Bilirubin,Indirect 0.3 mg/dL (0.0-1.2); Bilirubin,Total 0.4 mg/dL (0.3-1.0); Blood Urea Nitrogen 17 mg/dL (6-20); Calcium 8.1 mg/dL (8.6-10.3); Carbon Dioxide 24 mEq/L (23-29); Chloride 103 mEq/L (98-107); Globulin 2.4 g/dL (2.4-3.5); Glucose 97 mg/dL (70-105); Osmolality,Calculated 285 (280-300); Potassium 4.4 mEq/L (3.5-5.1); Sodium 137 mEq/L (136-145); eGFR For Non-African Americans > 60 (> 60)
[2018-07-28] MEDS: 0.9 % Sodium Chloride w KCl 20 MEQ/1,000 ML MLS IVC SCH ×2 (10:43→23:24)
[2018-07-28] MEDS: Ketorolac 30 MG/ML VIAL IVP SCH ×3 (11:54→23:19)
[2018-07-28] MEDS: *HR* OxyCODONE Immed Rel 5 MG TABLET PO PRN ×2 (12:55→17:01)
[2018-07-29] MEDS: *HR* Promethazine 25 MG/ML VIAL IVP PRN ×3 (04:55→16:43)
[2018-07-29] MEDS: Ketorolac 30 MG/ML VIAL IVP SCH ×3 (05:37→18:17)
[2018-07-29] MEDS ORDERED: *HR* Metoprolol 5 MG/5 ML VIAL IVP ONE (06:25)
[2018-07-29 07:04] LABS: Alanine Aminotransferase 69 Units/L (7-52); Albumin 3.7 g/dL (3.5-5.7); Albumin/Globulin Ratio 1.5 (1.1-2.2); Alkaline Phosphatase 66 Units/L (34-104); Aspartate Amino Transferase 124 Units/L (13-39); BUN/Creatinine Ratio 16 (6-26); Bilirubin,Direct 0.3 mg/dL (0.0-0.2); Bilirubin,Indirect 0.8 mg/dL (0.0-1.2); Bilirubin,Total 1.1 mg/dL (0.3-1.0); Blood Urea Nitrogen 10 mg/dL (6-20); Calcium 8.5 mg/dL (8.6-10.3); Carbon Dioxide 24 mEq/L (23-29); Chloride 98 mEq/L (98-107); Globulin 2.4 g/dL (2.4-3.5); Glucose 89 mg/dL (70-105); Lipase 174 Units/L (11-82); Magnesium 1.7 mg/dL (1.6-2.6); Osmolality,Calculated 273 (280-300); Potassium 3.8 mEq/L (3.5-5.1); Sodium 132 mEq/L (136-145); Total Protein 6.1 g/dL (6.4-8.9); eGFR For Non-African Americans > 60 (> 60)
[2018-07-29 07:56] LABS: Basophils % 0.7 %; Eosinophils # 0.2 K/mcL (0.0-0.6); Eosinophils % 3.9 %; Hematocrit 40.7 % (37.5-50.1); Hemoglobin 13.9 g/dL (12.9-16.9); Immature Granulocytes % 0.2 % (0-4); Lymphocytes # 0.5 K/mcL (0.6-4.6); Lymphocytes % 12.7 %; Mean Corpuscular HGB Conc 34.2 g/dL (31.6-35.5); Mean Corpuscular Hemoglobin 30.8 pg (28.0-33.3); Mean Platelet Volume 9.1 fL (9.4-12.4); Monocytes # 0.3 K/mcL (0.0-1.3); Monocytes % 6.8 %; Neutrophils # 3.1 K/mcL (1.6-8.9); Platelet Count 217 K/mcL (140-400); Red Blood Count 4.52 M/mcL (4.19-5.50); Red Cell Distribution Width 14.6 % (11.5-14.5); Segmented Neutrophils % 75.7 %
[2018-07-29] MEDS: *HR* OxyCODONE Immed Rel 5 MG TABLET PO PRN ×4 (08:12→23:08)
[2018-07-29] MEDS: Ondansetron 4 MG/2 ML VIAL IVP PRN (08:14)
[2018-07-29] MEDS ORDERED: *HR* Metoprolol 5 MG/5 ML VIAL IVP STA (13:28)
[2018-07-29] MEDS: 0.9 % Sodium Chloride w KCl 20 MEQ/1,000 ML MLS IVC SCH (13:34)
[2018-07-29] MEDS ORDERED: diazePAM 10 MG TABLET PO ONE (14:10)
--- NOTE | 2018-07-29 16:28 | Electrocardiograph Report ---
[address] [address] Test Date: 2018-07-27 Pat Name: Jesse Crouch Department: EXAM3 Room: 3A41 Gender: M Director Of Education And Training: : 1990 Requested By: Chalo Louis Order Number: [id number] Reading MD: Vincenzo Hernández Measurements Intervals [place] Rate: 101 P: 91 GA: 86 QRS: 12 QRSD: 139 T: 141 QT: 387 QTc: 502 Interpretive Statements Sinus tachycardia Ventricular preexcitation suggested, consider WPW Electronically Signed On 07-29-2018 16:27:15 EDT by Vincenzo Hernández
[2018-07-29] MEDS: *HR* Metoprolol 5 MG/5 ML VIAL IVP PRN (18:17)
[2018-07-30] MEDS: *HR* Metoprolol 5 MG/5 ML VIAL IVP PRN ×3 (00:33→13:54)
[2018-07-30] MEDS ORDERED: *HR* LORazepam 2 MG/ML VIAL IVP ONE (04:31)
--- NOTE | 2018-07-30 05:26 | Internal Med Progress Note ---
Hospitalist Progress Note - Encounter Date of Encounter: 07/29/18 Time of Encounter: 19:00 - Subjective Interval History: SUBJECTIVE: He has had less pain in left upper quadrant today. Associated with some nausea but not vomiting. He has developed tachycardia and hypertension. After giving him IV hydralazine he became more tachycardic. He got better after giving him 5 mg of IV Lopressor. He is very anxious. I cannot see any day for his or tremor of his extremities. The patient is a 27-year-old male, who has developed acute pancreatitis likely due to excessive alcohol consumption. He has had long-standing history of alcoholism. OBJECTIVE: Skin: Free of rash and discoloration. ENMT: Oral/pharyngeal mucosa is normal in appearance. Eyes: Sclera is white. There is no discharge from eyes. Respiratory: Normal breath sounds; no crackles or wheezes. CV: Heart is regular; no gallop or murmur. GI: Abdomen is soft and not tender. There is no palpable mass or visceromegaly. Neuro: There is no focal deficits. ADDITIONAL DATA: He is a CBC is normal. BMP shows mildly decreased sodium of 132. Creatinine is 0.62. Liver function tests are showing bilirubin of 1.1, AST of 124, ALT of 69 and alk phos of 66. Pro time INR is 1.0. ASSESSMENT AND PLAN: Acute pancreatitis/alcohol abuse. He improved some. To continue clear liquids. He gets up when necessary oxycodone and/or IV Toradol. Alcohol withdrawal with tachycardia and hypertension. To continue when necessary IV Lopressor. He was on sotalol at home; we will restart this medic ation. I gave him 10 mg of oral Valium in the early afternoon. He is on alcohol withdrawal protocol. - Exam Vitals: Temp Pulse Resp BP Pulse Ox 98.5 F 113 17 166/110 96 07/30/18 04:23 07/30/18 04:23 07/30/18 04:23 07/30/18 04:23 07/30/18 04:23 Exam: xx - Assessment and Plan (1) Acute pancreatitis Current Visit: Yes Status: Acute (2) Alcohol abuse Current Visit: Yes Status: Chronic (3) Alcohol withdrawal Current Visit: Yes Status: Acute - Time Spent with Patient Total time spent is greater than 50% in coordination of care (as documented) at patient's floor/unit and/or counseling patient: 25 - 35 minutes Plan of Care Discussed with: patient Internal Medicine: Result - Labs CBC & Chem 7: 07/29/18 07:45 07/29/18 05:51 Labs: Short CBC 07/29/18 Range/Units 07:45 WBC 4.1 L (4.3-11.1) K/mcL Hgb 13.9 (12.9-16.9) g/dL Hct 40.7 (37.5-50.1) % Plt Count 217 (140-400) K/mcL Neutrophils # 3.1 (1.6-8.9) K/mcL BMP 07/29/18 05:51 Sodium 132 L Potassium 3.8 Chloride 98 Carbon Dioxide 24 BUN 10 Creatinine 0.62 L Glucose 89 Calcium 8.5 L Liver Function 07/29/18 Range/Units 05:51 Total Bilirubin 1.1 H (0.3-1.0) mg/dL Direct Bilirubin 0.3 H (0.0-0.2) mg/dL AST 124 H (13-39) Units/L ALT 69 H (7-52) Units/L Alkaline Phosphatase 66 (34-104) Units/L Albumin 3.7 (3.5-5.7) g/dL - ABG Interpretation ABG results: PT/INR, D-dimer PT 11.6 Seconds (9.4-12.1) 07/27/18 20:46 Consult Discharge Plan - Plan Referrals: NONE,PCP [Primary Care Provider] - (1) Acute pancreatitis Qualifiers: Pancreatitis type: alcohol induced Acute pancreatitis complication: no infection or necrosis Qualified Code(s): K85.20 - Alcohol induced acute pancreatitis without necrosis or infection
[2018-07-30] MEDS: 0.9 % Sodium Chloride w KCl 20 MEQ/1,000 ML MLS IVC SCH (06:31)
[2018-07-30] MEDS: *HR* LORazepam 2 MG/ML VIAL IVP PRN ×2 (06:32→15:54)
[2018-07-30] MEDS ORDERED: *HR* LORazepam 2 MG/ML VIAL IVP STA (09:40)
[2018-07-30] MEDS: *HR* OxyCODONE Immed Rel 5 MG TABLET PO PRN ×3 (10:48→23:25)
[2018-07-31] MEDS: 0.9 % Sodium Chloride w KCl 20 MEQ/1,000 ML MLS IVC SCH (02:48)
[2018-07-31] MEDS: *HR* OxyCODONE Immed Rel 5 MG TABLET PO PRN (05:48)
[2018-07-31] MEDS: *HR* LORazepam 2 MG/ML VIAL IVP PRN (05:50)
--- NOTE | 2018-07-31 06:04 | Internal Med Progress Note ---
Hospitalist Progress Note - Encounter Date of Encounter: 07/30/18 Time of Encounter: 19:00 - Subjective Interval History: SUBJECTIVE: The patient is recovering from acute alcoholic pancreatitis, complicated with alcohol withdrawal. He is on detox protocol. Today morning he developed visual and hearing hallucinations. He felt like his aunt with keys to his department was here. There was nobody visiting him. Other than that, he seems to be doing okay. We started a cardiac diet at lunchtime. He has not developed any more pain after eating. He continues to have mild left upper quadrant abdominal pain, without nausea or vomiting. OBJECTIVE: Skin: Free of rash and discoloration. ENMT: Oral/pharyngeal mucosa is normal in appearance. Eyes: Sclera is white. There is no discharge from eyes. Respiratory: Normal breath sounds; no crackles or wheezes. CV: Heart is regular; no gallop or murmur. GI: Abdomen is soft and not tender. There is no palpable mass or visceromegaly. Neuro: There is no focal deficits. ADDITIONAL DATA: I have his blood tests from yesterday. He had normal CBC and BMP. With mildly elevated AST/ALT. Normal pro time INR. I am ordering a CBC, BMP, magnesium and hepatic panel for tomorrow morning. ASSESSMENT AND PLAN: Acute pancreatitis/alcohol abuse. He improved significantly. I switched him to cardiac diet. He gets up when necessary oxycodone and/or IV Toradol. Alcohol withdrawal with tachycardia and hypertension. To continue when necessary IV Lopressor. He was on sotalol at home; we restarted that medi cation. Medical delirium with visual/hearing hallucinations. I gave him extra 2 mg of IV Ativan. He got a sitter. To reevaluate the situation tomorrow morning. - Exam Vitals: Temp Pulse Resp BP Pulse Ox 98.3 F 86 18 138/84 97 07/31/18 04:46 07/31/18 04:46 07/31/18 04:46 07/31/18 04:46 07/31/18 04:46 Exam: xx - Assessment and Plan (1) Acute pancreatitis Current Visit: Yes Status: Acute (2) Alcohol abuse Current Visit: Yes Status: Chronic (3) Alcohol withdrawal Current Visit: Yes Status: Acute (4) Delirium due to another medical condition Current Visit: Yes Status: Acute - Time Spent with Patient Total time spent is greater than 50% in coordination of care (as documented) at patient's floor/unit and/or counseling patient: 25 - 35 minutes Plan of Care Discussed with: patient Internal Medicine: Result - Labs CBC & Chem 7: 07/29/18 07:45 07/29/18 05:51 - ABG Interpretation ABG results: PT/INR, D-dimer PT 11.6 Seconds (9.4-12.1) 07/27/18 20:46 Consult Discharge Plan - Plan Referrals: NONE,PCP [Primary Care Provider] - (1) Acute pancreatitis Qualifiers: Pancreatitis type: alcohol induced Acute pancreatitis complication: no infection or necrosis Qualified Code(s): K85.20 - Alcohol induced acute pancreatitis without necrosis or infection
[2018-07-31 06:58] LABS: Basophils % 0.5 %; Eosinophils # 0.1 K/mcL (0.0-0.6); Hematocrit 41.7 % (37.5-50.1); Hemoglobin 13.7 g/dL (12.9-16.9); Immature Granulocytes % 0.5 % (0-4); Lymphocytes # 0.5 K/mcL (0.6-4.6); Lymphocytes % 11.9 %; Mean Corpuscular HGB Conc 32.9 g/dL (31.6-35.5); Mean Corpuscular Hemoglobin 30.4 pg (28.0-33.3); Mean Corpuscular Volume 92.5 fL (83.0-100.0); Mean Platelet Volume 10.2 fL (9.4-12.4); Monocytes # 0.3 K/mcL (0.0-1.3); Monocytes % 8.3 %; Platelet Count 191 K/mcL (140-400); Red Blood Count 4.51 M/mcL (4.19-5.50); Red Cell Distribution Width 14.8 % (11.5-14.5); Segmented Neutrophils % 75.8 %
[2018-07-31 07:19] LABS: Alanine Aminotransferase 58 Units/L (7-52); Albumin 3.7 g/dL (3.5-5.7); Albumin/Globulin Ratio 1.4 (1.1-2.2); Alkaline Phosphatase 62 Units/L (34-104); Aspartate Amino Transferase 63 Units/L (13-39); BUN/Creatinine Ratio 9 (6-26); Bilirubin,Direct 0.1 mg/dL (0.0-0.2); Bilirubin,Indirect 0.6 mg/dL (0.0-1.2); Bilirubin,Total 0.7 mg/dL (0.3-1.0); Blood Urea Nitrogen 7 mg/dL (6-20); Calcium 8.9 mg/dL (8.6-10.3); Carbon Dioxide 25 mEq/L (23-29); Chloride 104 mEq/L (98-107); Globulin 2.6 g/dL (2.4-3.5); Glucose 107 mg/dL (70-105); Lipase 101 Units/L (11-82); Magnesium 1.8 mg/dL (1.6-2.6); Osmolality,Calculated 280 (280-300); Potassium 4.2 mEq/L (3.5-5.1); Sodium 136 mEq/L (136-145); Total Protein 6.3 g/dL (6.4-8.9); eGFR For Non-African Americans > 60 (> 60)
[2018-07-31] MEDS ORDERED: *HR* OxyCODONE Immed Rel 5 MG TABLET PO PRN (08:52)
[2018-07-31 09:49] VITALS: BP 126/83
--- NOTE | 2018-07-31 11:49 | Discharge Summary ---
- NOTES TO OUTPATIENT PROVIDER Notes to Outpatient Provider: Patient with a history of alcohol use also hospitalized here with pancreatitis. He was kept nothing by mouth and treated with fluids, analgesics and antiemetics. He was also placed on CIWA protocol. He is now doing much better and is clinically stable to be discharged home. Date of Encounter: 07/31/18 Time of Encounter: 09:20 - Discharge Diagnosis (1) Acute pancreatitis Priority: Primary Status: Acute Qualifiers: Pancreatitis type: alcohol induced Acute pancreatitis complication: no infection or necrosis Qualified Code(s): K85.20 - Alcohol induced acute pancreatitis without necrosis or infection (2) Alcohol abuse Priority: Secondary Status: Chronic (3) Alcohol withdrawal Priority: Secondary Status: Acute Qualifiers: Complication of substance-induced condition: with delirium Qualified Code(s): F10.231 - Alcohol dependence with withdrawal delirium (4) Delirium due to another medical condition Priority: Secondary Status: Acute Hospital course: Mr. Crouch is a 27 year old male Patient with a history of alcohol use also hospitalized here with pancreatitis. He was kept nothing by mouth and treated with fluids, analgesics and antiemetics. He was also placed on CIWA protocol. He did have visual and auditory hallucinations. He was treated for this with benzodiazepines. This morning he is doing much better and denies any further hallucinations. He denies any abdominal pain. He is tolerating diet well. He is clinically stable to be discharged home. Discharge discussed with: patient, nurse - Time Spent with Patient Total time spent providing and/or coordinating discharge services: Time spent: Less than 30 minutes (25 min) - Discharge Medications Prescriptions: Continue Sotalol [Betapace] 40 mg PO BID Pantoprazole Sodium [Protonix] 40 mg PO DAILY Multivitamin [Daily Multiple Vitamin] 1 tab PO DAILY Home Medications: Multivitamin [Daily Multiple Vitamin] 1 tab PO DAILY 07/29/18 [History] Pantoprazole Sodium [Protonix] 40 mg PO DAILY 07/29/18 [History] Sotalol [Betapace] 40 mg PO BID 07/29/18 [History] Allergies/Adverse Reactions: Allergy/AdvReac Type Severity Reaction Status Date / Time No Known Allergies Allergy Verified 07/29/18 14:48 Date of admission: 07/28/18 11:31 Primary care physician: PCP NONE Consults: 07/27/18 23:56 Consult to Construction Operations Manager [CONS] Routine Reason for SW Consult: alcoholic who will like detox/counseling services Discharging clinician: Waldemar Mixon Anticipated date of discharge: 07/31/18 - Constitutional Vitals: Temp Pulse Resp BP Pulse Ox 98.2 F 96 15 126/83 97 07/31/18 09:48 07/31/18 09:48 07/31/18 09:48 07/31/18 09:48 07/31/18 09:48 General appearance: Present: cooperative, A&O X 3, pleasant, no acute distress, answers questions appropriately Exam: . - Respiratory Respiratory exam: Present: CTAB. Absent: accessory muscle use, rales, rhonchi, wheezes - Cardiovascular Cardiovascular exam: Present: RRR, +S1, +S2. Absent: diastolic murmur, gallop, rubs, systolic murmur - GI/Abdominal GI/Abdominal exam: Present: normal bowel sounds, soft, no peritoneal signs. Absent: distended, tenderness - Patient Status Disposition: Home, Self-Care Condition: Good Functional capacity at discharge: independent ambulation Overall status at discharge: patient is progressing back to baseline - Discharge Instructions Follow Up With: NONE,PCP [Primary Care Provider] - (In 1-2 weeks) - Diet and Activity Activity: increase activity as tolerated Diet: advance to your usual diet
== END 2018-07-31 14:13 | disposition home or self-care (01) | DRG 282 ==
LOC: EMEROOARM 19:09 → 3ANU 19:09 → SUATTDRO 23:53 → 3ANU 07-28 00:42 → SUATTDRO 07-28 11:31
PROVIDERS: ADMIT Internal Medicine; ATTEND Internal Medicine